=== PATIENT | female | born 1970 | race Hispanic/Latino ===

== ENCOUNTER 2024-01-19 20:36 | Emergency (ER) | payer MEDICAID ==
[~2024-01-19] VITALS: Ht 162.6 cm; Wt 72.6 kg
[2024-01-19] MEDS ORDERED: IBUPROFEN 600 MG TABLET PO ONE (21:00)
[2024-01-19 21:17] LABS: RAPID GROUP A STREP negative (NEGATIVE); SARS-CoV-2, RNA, NAAT NEGATIVE SARS CoV-2 (NEGATIVE)
[2024-01-19 21:19] LABS: INFLUENZA TYPE A Negative For Type A (NEGATIVE); INFLUENZA TYPE B Negative For Type B (NEGATIVE)
[2024-01-19] MEDS: ACETAMINOPHEN 325 MG TAB PO ONE (22:22)
[2024-01-19 22:51] LABS: ADD UA MICROSCOPIC YES; APPEARANCE,URINE CLEAR (CLEAR); BILIRUBIN,URINE NEGATIVE (NEGATIVE); COLOR,URINE LIGHT-YELLOW (YELLOW); GLUCOSE, URINE (UA) NEGATIVE (NEGATIVE); KETONES,URINE NEGATIVE (NEGATIVE); LEUKOCYTE ESTERASE ,URINE 250 Leu/uL (NEGATIVE); NITRATE,URINE NEGATIVE (NEGATIVE); OCCULT BLOOD,URINE MODERATE (NEGATIVE); PH,URINE 5.5 (5.0-8.0); PROTEIN,URINE NEGATIVE (NEGATIVE); UROBILINOGEN,URINE 0.2 mg/dL (0.2-1.0)
[2024-01-19 22:53] LABS: BACTERIA,URINE MOD /HPF (None Seen); MUCUS,URINE RARE LPF (None Seen); SQUAMOUS EPITHELIAL CELL,UR FEW /HPF (0-2)
[2024-01-19] MEDS ORDERED: ONDA-243 PO (23:05)
[2024-01-19] MEDS ORDERED: NITR100C PO (23:05)
[2024-01-19] MEDS: CEFTRIAXONE 1G VIAL IM ONE (23:43)
[2024-01-20 00:10] VITALS: BP 128/78; PULSE 88; RESP 16; O2SAT 97
== END 2024-01-20 00:17 | disposition home or self-care (01) ==
LOC: EDH 20:36
DX: R50.9 Fever, unspecified (principal); N39.0 Urinary tract infection, site not specified; Z20.822 Contact with and (suspected) exposure to COVID-19
CPT/HCPCS: 99283; 87635; 87086 ×2; 87186; 87880; 87804 ×2; 81001; 96372; J0696

== ENCOUNTER → 2024-02-26 | Outpatient (CLI) | payer MEDICAID ==
[~2024-02-26] MED LIST: NITR100C PO; ONDA-243 PO
== END | disposition home or self-care (01) ==
LOC: RAH 13:33
PROVIDERS: ATTEND Family Medicine
DX: R91.1 Solitary pulmonary nodule (principal)
CPT/HCPCS: 71250

== ENCOUNTER 2024-05-09 06:31 | Day surgery (SDC) | payer MEDICAID ==
[~2024-05-09] VITALS: Ht 162.6 cm; Wt 75.7 kg
[~2024-05-09 06:31] MED LIST changes: +0.9%NACL 1000ML 1,000 ML IV ONE; +CEPH500C2 PO; +ERGO500093 PO; -NITR100C PO; -ONDA-243 PO
== END 2024-05-09 10:15 | disposition home or self-care (01) ==
LOC: DAH 06:31 → ENDO 06:31
PROVIDERS: ATTEND Internal Medicine Gastroenterology
DX: R94.5 Abnormal results of liver function studies (principal); K76.0 Fatty (change of) liver, not elsewhere classified; E78.00 Pure hypercholesterolemia, unspecified; F41.9 Anxiety disorder, unspecified; M19.90 Unspecified osteoarthritis, unspecified site; Z86.0100 Personal history of colon polyps, unspecified; R91.8 Other nonspecific abnormal finding of lung field; Z79.899 Other long term (current) drug therapy; Z53.8 Procedure and treatment not carried out for other reasons
CPT/HCPCS: J7030

== ENCOUNTER 2024-10-28 21:34 | Emergency (ER) | payer MEDICAID ==
[~2024-10-28] VITALS: Ht 162.6 cm; Wt 68.0 kg
[~2024-10-28 21:34] MED LIST changes: -0.9%NACL 1000ML 1,000 ML IV ONE
--- NOTE | 2024-10-28 21:43 | NUR ---
UA CUP PROVIDED
--- NOTE | 2024-10-28 22:12 | ERN ---
General Chief Complaint: Cough Stated Complaint: COUGH Time Seen by MD: 21:36 Source: patient History of Present Illness Initial Comments 54-year-old female presents with a cough for three days. 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 No nausea or vomiting no diarrhea no fever. No difficulty breathing no chest pain. Allergies: Coded Allergies: No Known Allergies (Unverified Allergy, Unknown, 01/19/24) Home Meds Reported Medications Cephalexin (Cephalexin) 500 Mg Capsule, 1 CAP PO BID for 10 Days, #20 CAP 0 Refills 05/06/24 Ergocalciferol (Vitamin D2) (Vitamin D2) 1,250 Mcg (35862 Unit) Capsule, 1 CAP PO QWEEK for 28 Days, #4 CAP 0 Refills 05/06/24 Past Medical History Past Medical History: Arthritis Past Surgical History: Social History Social History: Negative Female( History) History: Not Applicable ROS Dictation Patient's stated that she did bump her head about two weeks ago and she still has a bruise. No visual changes no headaches. Constitutional: (-) chills, (-) diaphoresis, (-) fever, (-) malaise, (-) weakness, (-) other documentation EENTM: (-) eye pain, (-) blurred vision, (-) tearing, (-) double vision, (-) ear pain, (-) ear discharge, (-) nose pain, (-) nose congestion, (-) throat pain, (-) Throat swelling, (-) mouth pain, (-) tooth pain, (-) mouth swelling, (-) other documentation Respiratory: (+) cough Cardiovascular: (-) chest pain, (-) edema, (-) palpitations, (-) syncope, (-) dyspnea on exertion, (-) other documentation Gastrointestinal/Abdominal: (-) nausea, (-) vomiting, (-) diarrhea, (-) abdominal pain, (-) abdominal distention, (-) constipation, (-) rectal bleeding, (-) dark stool/melena, (-) other documentation Musculoskeletal: (-) Neck pain, (-) back pain, (-) Flank Pain, (-) joint pain, (-) joint swelling, (-) muscle pain, (-) muscle stiffness, (-) gout, (-) other documentation Nurses Notes Reviewed: Yes Physical Exam General Appearance: (+) no apparent distress Orientation: (+) oriented x 3 Head/Face Trauma: Yes Face Comment Patient has a resolving bruise on her right lateral forehead. The bruise looks mature and is healing minimal swelling. Eye: bilateral eye normal inspection, bilateral eye PERRL, bilateral eye EOMI Ear, Nose, Throat: (+) hearing grossly normal, (+) normal ENT inspection Neck: (+) normal inspection, (+) supple, (+) full range of motion Respiratory: (+) chest non-tender, (+) lungs clear, (+) well ventilated Heart: (+) regular, (+) no gallop Gastrointestinal: (+) soft, (+) non-tender, (+) bowel sound present Results Laboratory and Microbiology Lab and Micro Result Laboratory Tests Test 10/28/24 22:15 10/28/24 22:47 Influenza Type A Antigen Negative For Type A Influenza Type B Antigen Negative For Type B SARS-CoV-2 Antigen (Rapid) PRESUMPTIVE NEGATIVE Group A Streptococcus Rapid negative (NEGATIVE) White Blood Count 9.2 K/uL (4.8-10.8) Red Blood Count 4.60 MIL/uL (4.00-5.50) Hemoglobin 12.0 g/dL (12.0-16.0) Hematocrit 38.6 % (36-48) Mean Corpuscular Volume 83.9 fL (79-99) Mean Corpuscular Hemoglobin 26.1 pg (27.0-33.0) L Mean Corpuscular Hemoglobin Concent 31.1 g/dL (32.0-36.0) L Red Cell Distribution Width 15.6 % (11.0-15.5) H Platelet Count 374 K/uL (130-400) Mean Platelet Volume 9.1 fL (7.5-10.5) Immature Granulocyte % (Auto) 0.4 % (0-1) Neutrophils (%) (Auto) 65.5 % (40.0-77.0) Lymphocytes (%) (Auto) 25.0 % (21.0-51.0) Monocytes (%) (Auto) 8.2 % (3.0-13.0) Eosinophils (%) (Auto) 0.7 % (0.0-8.0) Basophils (%) (Auto) 0.2 % (0.0-5.0) Neutrophils # (Auto) 6.0 K/uL (1.8-7.7) Lymphocytes # (Auto) 2.3 K/uL (1.0-4.8) Monocytes # (Auto) 0.8 K/uL (0.1-1.0) Eosinophils # (Auto) 0.06 K/uL (0.00-0.70) Basophils # (Auto) 0.02 K/uL (0.00-0.20) Absolute Immature Granulocyte (auto 0.04 K/uL (0-1) Nucleated Red Blood Cells 0.0 % (0.0-0.19) Labs Reviewed?: Yes MDM Sounds like a simple upper respiratory tract infection. I will do nasal swabs. Patient's CBC is normal with no left shift. Nasal swabs are negative for strep COVID and influenza. I discussed these results with the patient. She wondered if she could get a CT of her head because of her head injury two weeks ago but in the absence of symptoms I do not think it is appropriate. She is fine with this and will go home. ED Course Orders Procedure Category Date Status Time Rapid (Group A Strep) LAB 10/28/24 Complete 22:13 Influenza Type A & B, LAB 10/28/24 Complete Rapid 22:13 Covid19 (Sars Antigen LAB 10/28/24 Complete Rapid) 22:13 Cbc With Differential LAB 10/28/24 Complete 22:13 Vital Signs Date Time Temp Pulse Resp B/P (MAP) Pulse Ox O2 Delivery O2 Flow Rate FiO2 10/28/24 21:35 98.4 90 20 164/89 98 Room Air DX & DISP Disposition: Discharge Departure Impression: Primary Impression: URTI (acute upper respiratory infection) Condition: Stable Additional Instructions: Please return if your respiratory symptoms get worse with the increasing sputum fevers chills nausea vomiting inability to stay hydrated or take in food. Referrals: HIAR PIERRE (PCP) SERENA PEREIRA MD Oct 28, 2024 22:12
--- NOTE | 2024-10-28 22:15 | NUR ---
COVID, FLU AND STREP SWABS COLLECTED AND SENT
[2024-10-28 22:32] LABS: RAPID GROUP A STREP negative (NEGATIVE)
[2024-10-28 22:41] LABS: COVID19 (SARS ANTIGEN RAPID) PRESUMPTIVE NEGATIVE (NEGATIVE); INFLUENZA TYPE A Negative For Type A (NEGATIVE); INFLUENZA TYPE B Negative For Type B (NEGATIVE)
[2024-10-28 22:54] LABS: BASOPHILS # (AUTO) 0.02 K/uL (0.00-0.20); BASOPHILS % (AUTO) 0.2 % (0.0-5.0); EOSINOPHILS # (AUTO) 0.06 K/uL (0.00-0.70); EOSINOPHILS % (AUTO) 0.7 % (0.0-8.0); HEMATOCRIT 38.6 % (36-48); IMMATURE GRANULOCYTE ABSOLUTE 0.04 K/uL (0-1); LYMPHOCYTES # (AUTO) 2.3 K/uL (1.0-4.8); MEAN CORPUSCULAR HEMOGLOBIN 26.1 pg (27.0-33.0); MEAN CORPUSCULAR HGB CONC 31.1 g/dL (32.0-36.0); MEAN CORPUSCULAR VOLUME 83.9 fL (79-99); MONOCYTES # (AUTO) 0.8 K/uL (0.1-1.0); MONOCYTES % (AUTO) 8.2 % (3.0-13.0); NEUTROPHILS % (AUTO) 65.5 % (40.0-77.0); PLATELET COUNT (AUTO) 374 K/uL (130-400); RED CELL DISTRIBUTION WIDTH 15.6 % (11.0-15.5); WHITE BLOOD COUNT (AUTO) 9.2 K/uL (4.8-10.8)
[2024-10-28 23:18] VITALS: BP 157/79; PULSE 79; RESP 18; TEMP 97.9; O2SAT 97
== END 2024-10-28 23:19 | disposition home or self-care (01) ==
LOC: EDH 21:34
DX: J06.9 Acute upper respiratory infection, unspecified (principal); M19.90 Unspecified osteoarthritis, unspecified site; Z20.822 Contact with and (suspected) exposure to COVID-19; Z79.899 Other long term (current) drug therapy; Z98.890 Other specified postprocedural states
CPT/HCPCS: 36415; 85025; 87426; 87804; 87880; 99283

== ENCOUNTER 2024-11-09 18:00 | Emergency (ER) | payer MEDICAID ==
[~2024-11-09] VITALS: Ht 162.6 cm; Wt 65.8 kg
[2024-11-09 18:26] LABS: BASOPHILS # (AUTO) 0.03 K/uL (0.00-0.20); BASOPHILS % (AUTO) 0.4 % (0.0-5.0); EOSINOPHILS # (AUTO) 0.09 K/uL (0.00-0.70); EOSINOPHILS % (AUTO) 1.1 % (0.0-8.0); IMMATURE GRANULOCYTE ABSOLUTE 0.03 K/uL (0-1); LYMPHOCYTES # (AUTO) 2.3 K/uL (1.0-4.8); LYMPHOCYTES % (AUTO) 29.1 % (21.0-51.0); MEAN CORPUSCULAR HEMOGLOBIN 26.6 pg (27.0-33.0); MEAN CORPUSCULAR HGB CONC 31.4 g/dL (32.0-36.0); MEAN CORPUSCULAR VOLUME 84.9 fL (79-99); MONOCYTES # (AUTO) 0.8 K/uL (0.1-1.0); MONOCYTES % (AUTO) 9.5 % (3.0-13.0); NEUTROPHILS # (AUTO) 4.7 K/uL (1.8-7.7); NEUTROPHILS % (AUTO) 59.5 % (40.0-77.0); PLATELET COUNT (AUTO) 417 K/uL (130-400); RED BLOOD CELL COUNT(AUTO) 4.36 MIL/uL (4.00-5.50); RED CELL DISTRIBUTION WIDTH 16.4 % (11.0-15.5); WHITE BLOOD COUNT (AUTO) 7.9 K/uL (4.8-10.8)
[2024-11-09 18:35] LABS: CREATININE 0.8 mg/dL (0.5-1.0)
[2024-11-09 18:39] LABS: MAGNESIUM 2.1 mg/dL (1.80-2.40)
[2024-11-09 18:45] LABS: B-TYPE NATRIURETIC PEPTIDE 25 pg/mL (0-100)
--- NOTE | 2024-11-09 18:54 | HMCIMG ---
PORTABLE CHEST RADIOGRAPH INDICATION: cp COMPARISON: 02/26/2024 CT chest FINDINGS: Heart size is normal. The pulmonary vascularity and dom appear normal. No abnormal pulmonary parenchymal opacity or consolidation identified. No significant pleural effusion noted. No pneumothorax detected. IMPRESSION: No radiographic evidence for any acute cardiopulmonary process.
[2024-11-09] MEDS ORDERED: METH4TAB3 PO (19:42)
[2024-11-09] MEDS ORDERED: AZIT250T9 PO (19:42)
[2024-11-09] MEDS: dexaMETHasone SOD PHOSPHATE 4 MG/ML 1ML VIAL IM ONE (19:46)
[2024-11-09] MEDS: ketOROlac 30MG VIAL (30MG/ML) IM ONE (19:46)
[2024-11-09] MEDS: BENZONATATE 100 MG CAPSULE PO ONE (19:46)
--- NOTE | 2024-11-09 19:57 | ERN ---
General Chief Complaint: Rib Pain Stated Complaint: CHEST PAINS ON RIGHT UPPER AREA FOR 3 DAYS Time Seen by MD: 18:03 Time Seen by Midlevel: 18:03 Source: patient History of Present Illness Initial Comments The patient is a 54-year-old female presenting to the emergency department with left lower chest wall pain. She states the pain started three days ago. She states she has been having a productive cough for three weeks. She was seen in our emergency department a proximally one week ago and was told to take [id number] medication for supportive management. She was taking DayQuil with little to no relief. Over the last three days she developed pain with deep inspiration of her left lower chest. Denies any other symptoms. She still reports the productive cough. Allergies: Coded Allergies: No Known Allergies (Unverified Allergy, Unknown, 01/19/24) Home Meds Reported Medications Cephalexin (Cephalexin) 500 Mg Capsule, 1 CAP PO BID for 10 Days, #20 CAP 0 Refills 05/06/24 Ergocalciferol (Vitamin D2) (Vitamin D2) 1,250 Mcg (62404 Unit) Capsule, 1 CAP PO QWEEK for 28 Days, #4 CAP 0 Refills 05/06/24 Past Medical History Past Medical History: Arthritis Past Surgical History: Social History Social History: Negative Female( History) History: Not Applicable LMP: Nov 08, 2024 : 4 Para: 4 Aborts: 0 ROS Dictation CONSTITUTIONAL: Negative except for HPI HEAD/FACE: Negative except for HPI EENT: Negative except for HPI RESPIRATORY: Negative except for HPI GASTROINTESTINAL/ABDOMINAL: Negative except for HPI GENITOURINARY: Negative except for HPI MUSCULOSKELETAL: Negative except for HPI INTEGUMENTARY: Negative except for HPI NEUROLOGICAL/PSYCH: Negative except for HPI HEMATOLOGIC/LYMPHATIC: Negative except for HPI All Systems Negative, Except as noted above. 13 point review of systems assessed and all negative except for above. Physical Exam Physical Exam Dictation Vital Signs reviewed General Appearance: Alert, oriented x 3, no acute distress, well developed, nourished. Head and Face: non-traumatic. Eyes: PERRL, pink conjunctivas, eyelid no trauma, anterior chamber with arcus senilis. Ears: Pinnas intact and no signs of trauma or erythema ear canals clear and no discharge TM no erythema Nose: No discharge, no bleeding. Oropharynx: Mouth normal, tongue pink, pharynx clear,no erythema, tonsils no exudates, no abscesses noted, mucous membrane moist Neck: Supple, non-tender, no thyromegaly, no masses, no JVD, no bruits Breast:Deferred Chest:No tenderness, no crepitus, no paradoxical movement, no retractions Lungs:Clear, well-ventilated, symmetric, no rales, no wheezing, no rhonchi, no stridor, good breath sounds bilaterally Heart: Regular rate, regular rhythm, no murmur, no gallops Vascular: no peripheral edema, Abdomen: Soft, positive bowel sounds, nondistended, no guarding, nontender, no rebound, no masses no hepatomegaly, no splenomegaly, no Herrera's sign, no hernias. Rectal: Deferred Genital: Deferred Neurological: Normal speech, motor function intact, sensory function intact Musculoskeletal: Neck nontender, full range of motion, back nontender, full range of motion, Extremities: nontender, full range of motion Skin: Color pink, dry, no turgor, no rash, no lacerations, no abrasions, no contusions. Lymphatic: Deferred Results Laboratory and Microbiology Lab and Micro Result Laboratory Tests Test 11/09/24 18:20 White Blood Count 7.9 K/uL (4.8-10.8) Red Blood Count 4.36 MIL/uL (4.00-5.50) Hemoglobin 11.6 g/dL (12.0-16.0) L Hematocrit 37.0 % (36-48) Mean Corpuscular Volume 84.9 fL (79-99) Mean Corpuscular Hemoglobin 26.6 pg (27.0-33.0) L Mean Corpuscular Hemoglobin Concent 31.4 g/dL (32.0-36.0) L Red Cell Distribution Width 16.4 % (11.0-15.5) H Platelet Count 417 K/uL (130-400) H Mean Platelet Volume 9.2 fL (7.5-10.5) Immature Granulocyte % (Auto) 0.4 % (0-1) Neutrophils (%) (Auto) 59.5 % (40.0-77.0) Lymphocytes (%) (Auto) 29.1 % (21.0-51.0) Monocytes (%) (Auto) 9.5 % (3.0-13.0) Eosinophils (%) (Auto) 1.1 % (0.0-8.0) Basophils (%) (Auto) 0.4 % (0.0-5.0) Neutrophils # (Auto) 4.7 K/uL (1.8-7.7) Lymphocytes # (Auto) 2.3 K/uL (1.0-4.8) Monocytes # (Auto) 0.8 K/uL (0.1-1.0) Eosinophils # (Auto) 0.09 K/uL (0.00-0.70) Basophils # (Auto) 0.03 K/uL (0.00-0.20) Absolute Immature Granulocyte (auto 0.03 K/uL (0-1) Nucleated Red Blood Cells 0.0 % (0.0-0.19) Sodium Level 141 mmol/L (136-145) Potassium Level 4.0 mmol/L (3.5-5.1) Chloride Level 104 mmol/L (101-111) Carbon Dioxide Level 31 mmol/L (21-32) Blood Urea Nitrogen 9 mg/dL (7-18) Creatinine 0.8 mg/dL (0.5-1.0) Glomerular Filtration Rate Calc 88 mL/min (>90) Random Glucose 104 mg/dL (70-105) Total Calcium 8.6 mg/dL (8.5-10.1) Magnesium Level 2.10 mg/dL (1.80-2.40) Total Creatine Kinase 33 U/L (21-232) # Troponin I High Sensitivity 6 ng/L (4-50) B-Type Natriuretic Peptide 25 pg/mL (0-100) Labs Reviewed?: Yes MDM MDM: The patient is a 54-year-old female presenting to the emergency department with left lower chest wall pain. She states the pain started three days ago. She states she has been having a productive cough for three weeks. She was seen in our emergency department a proximally one week ago and was told to take [id number] medication for supportive management. She was taking DayQuil with little to no relief. Over the last three days she developed pain with deep inspiration of her left lower chest. Denies any other symptoms. She still reports the productive cough. Initial vital signs are stable. Temperature is remarkable for 98.2. Heart rate is 60 beats per minute. Blood pressure stable at 150/87. O2 saturation is 98% on room air. On clinical evaluation the patient was in no acute respiratory distress. She does appear to be uncomfortable when she takes deep breaths. She was no chest wall tenderness. The pain to her left lower chest is not reproducible with palpation. She has a productive cough during my examination. There was no wheezing or rhonchi noted. Her CBC shows no leukocytosis, no anemia, no thrombocytopenia. Chemistries are stable. Chest x-ray shows no radiographic evidence for any acute cardiopulmonary process. No obvious pneumothorax or pleural effusion noted. Patient was given 30 mg of ketorolac IM, 100 mg of Tessalon Perles, and 4 mg of dexamethasone IM. The patient will be discharged home with a prescription for azithromycin, and Medrol pack. Differential diagnosis: Pneumonia, pleural effusion, pneumothorax There are no social concerns with this patient. Prescription drug management Prescriptions will include: Medical management and examination interpretation discussions were had by me with other qualified healthcare professionals as indicated for the patient's care. ED Course Orders Procedure Category Date Status Time 12 Lead Ekg Tracing- EKG 11/09/24 Logged Technical 18:03 Cbc With Differential LAB 11/09/24 Complete 18:03 Basic Metabolic Panel LAB 11/09/24 Complete 18:03 B-Type Natriuretic LAB 11/09/24 Complete Peptide 18:03 Creatine Kinase, Total LAB 11/09/24 Complete 18:03 Troponin I High LAB 11/09/24 Complete Sensitivity 18:03 Magnesium LAB 11/09/24 Complete 18:03 Chest 1vw RAD 11/09/24 Resulted 18:03 Ketorolac PHA 11/09/24 In Process Tromethamine 30mg/Ml 19:30 Benzonatate 100 Mg PHA 11/09/24 In Process Capsule (Tessalon 100 19:30 Dexamethasone 4mg/Ml PHA 11/09/24 In Process 1ml Vial (Dexametha 19:30 Current Medications Medications (Trade) Dose Ordered Sig/Kip Route PRN Reason Start Time Stop Time Status Last Admin Dose Admin Benzonatate (Tessalon 100mg Caps) 100 mg ONCE ONCE PO 11/09/24 19:30 11/09/24 19:31 Dexamethasone Sodium Phosphate (dexaMETHasone 4MG/ML 1ML VIAL) 4 mg ONCE ONCE IM 11/09/24 19:30 11/09/24 19:31 Ketorolac Tromethamine (toRADol) 30 mg ONCE ONCE IM 11/09/24 19:30 11/09/24 19:31 Vital Signs Date Time Temp Pulse Resp B/P (MAP) Pulse Ox O2 Delivery O2 Flow Rate FiO2 11/09/24 18:31 98.2 68 16 150/87 98 0 DX & DISP Disposition: Discharge Departure Impression: Primary Impression: Acute bronchitis Condition: Stable Scripts Azithromycin (Azithromycin) 250 Mg Tablet 1 TAB PO AD for 5 Days, #6 TAB 0 Refills 2 the first day followed by 1 for days 2-5 Prov: ARIANA FARIAS 11/09/24 Methylprednisolone (Medrol) 4 Mg Tab.ds.pk 1 TAB PO AD for 6 Days, #21 TAB 0 Refills 6 on day 1 then reduce by one tablet daily until gone Prov: ARIANA FARIAS 11/09/24 Additional Instructions: Your blood work today is unremarkable. Your chest x-ray does not show any acute abnormality however during my physical examination you have a productive cough. I have given you a prescription for azithromycin which is an antibiotic and steroids which should help improve your symptoms over the next couple of days. If your symptoms do not improve over the next five days please report to the ER for further evaluation. You may need a CT scan for further evaluation. Referrals: HARI PIERRE (PCP) Time of Disposition: 19:41 I have reviewed the case, and I agree with, Diagnosis and Plan I performed the substantive portion of the visit. I have reviewed and personally made and approve the management plan that is documented in the note by myself or the SARAY. I acknowledge for responsibility for the patient's management plan. ARIANA FARIAS Nov 09, 2024 19:57
[2024-11-09 20:00] VITALS: BP 141/79; PULSE 65; RESP 16; TEMP 98.2; O2SAT 98
--- NOTE | 2024-11-10 08:41 | EKG ---
[facility] Test Date: 2024-11-09 Test Time: 18:36:07 Pat Name: LANA VAZQUEZ Department: ED Room: Gender: F [employer] Operator: [id number] : 1970 Requested By: ARIANA FARIAS Order Number: [id number] Reading MD: Rachael Faulkner Measurements Intervals [place] Rate: 65 P: 52 LA: 161 QRS: -16 QRSD: 85 T: 43 QT: 410 QTc: 427 Interpretive Statements Sinus rhythm Probable left atrial enlargement Compared to ECG 01/24/2024 14:01:52 No significant changes Electronically Signed On 11-10-2024 13:22:22 CDT by Rachael Faulkner Please click the below link to view image of tracing.
== END 2024-11-09 20:26 | disposition home or self-care (01) ==
LOC: EDH 18:00
DX: J20.9 Acute bronchitis, unspecified (principal); M19.90 Unspecified osteoarthritis, unspecified site; Z79.899 Other long term (current) drug therapy; Z98.890 Other specified postprocedural states
CPT/HCPCS: 99285; 71045; 82550; 83735; 84484; 80048; 83880; 85025; 36415; 96372 ×2; 93005; J1100; J1885